=== PATIENT | male | born 1940 | race Caucasian/White ===

== ENCOUNTER 2019-12-26 07:40 | Day surgery (SDC) | payer OTHER ==
[~2019-12-26] VITALS: Ht 170.2 cm; Wt 70.9 kg
[~2019-12-26 07:40] MED LIST: HYDCHL12.5 PO; LOSA25 PO
[2019-12-26] MEDS ORDERED: MELO7.5 (08:17)
[2019-12-26] MEDS ORDERED: ASPI81CH (08:17)
[2019-12-26] MEDS ORDERED: MEMA5TAB (08:17)
[2019-12-26] MEDS ORDERED: ZYRTEC10 M2 (08:18)
== END 2019-12-26 09:29 | disposition home or self-care (01) ==
LOC: ORSCSDS 07:40
PROVIDERS: Ophthalmology
PROC: 08RJ3JZ Replacement of Right Lens with Synthetic Substitute, Percutaneous Approach (ICD-10-PCS; principal; 2019-12-26 09:00)
DX: H25.11 Age-related nuclear cataract, right eye (principal); I10 Essential (primary) hypertension; Z87.891 Personal history of nicotine dependence; Z79.899 Other long term (current) drug therapy
CPT/HCPCS: J2001; J2250; J3010; J3301; J7040; V2632

== ENCOUNTER 2022-05-30 18:46 | Inpatient (IN) | payer OTHER ==
[~2022-05-30] VITALS: Ht 170.2 cm; Wt 62.6 kg
[~2022-05-30 18:46] MED LIST changes: +ASPI81CH PO; +MEMA10 PO; +Mobic15 MG PO; +ZYRTEC10 M2 PO
[2022-05-30 19:20] LABS: BASOPHILS ABSOLUTE AUTO 0.02 K/mm3 (0.00-0.23); BASOPHILS PERCENT AUTO 0 % (0-2); EOSINOPHILS PERCENT AUTO 0 % (0-6); Hematocrit 42.3 % (37.0-53.0); Hemoglobin 14.2 g/dL (13.5-17.5); IMMATURE GRAN ABSOLUTE AUTO 0.03 K/mm3 (0.00-0.10); IMMATURE GRAN PERCENT AUTO 0 % (0-1); LYMPHOCYTES ABSOLUTE AUTO 0.37 K/mm3 (0.84-5.20); LYMPHOCYTES PERCENT AUTO 4 % (21-46); MONOCYTES ABSOLUTE AUTO 0.94 K/mm3 (0.16-1.47); MONOCYTES PERCENT AUTO 11 % (4-13); Mean Corpuscular HGB 31.1 pg (26.0-34.0); Mean Corpuscular HGB Conc 33.6 g/dL (31.5-36.5); Mean Corpuscular Volume 93 fL (80-100); Mean Platelet Volume 9.8 fL (9.1-12.4); NEUTROPHILS ABSOLUTE AUTO 7.39 K/mm3 (1.96-9.15); NEUTROPHILS PERCENT AUTO 85 % (41-73); Platelet Count 141 K/mm3 (150-400); RDW Coefficient Variation 12.1 % (11.7-14.2); RDW Standard Deviation 41.5 fL (35.1-46.3); Red Blood Cell Count 4.57 M/mm3 (4.30-5.90); White Blood Cell Count 8.75 K/mm3 (4.00-11.30)
[2022-05-30 19:39] LABS: Albumin, Blood 3.8 g/dL (3.4-5.0); Albumin/Globulin Ratio 1.4 (0.8-1.8); Bilirubin, Total 0.3 mg/dL (0.1-1.0); Bun/Creatinine Ratio 18.5 (12.0-20.0); Calcium, Blood 8.6 mg/dL (8.5-10.1); Creatinine, Blood 0.87 mg/dL (0.60-1.20); Globulin, Blood 2.8 g/dL (2.2-4.0); Potassium, Blood 3.2 mmol/L (3.5-5.5); Total Protein, Blood 6.6 g/dL (6.4-8.2)
[2022-05-30 20:39] LABS: Influenza A, PCR NEGATIVE (NEGATIVE); Influenza B, PCR NEGATIVE (NEGATIVE); Resp Syncytial Virus, PCR NEGATIVE (NEGATIVE)
[2022-05-30 20:53] LABS: SARS-Cov-2 (COVID-19) PCR, MMC POSITIVE (NEGATIVE)
[2022-05-30 21:30] LABS: Source, Urine Clean Catch
[2022-05-30 21:41] LABS: Bilirubin, Urine Neg (Neg); Blood, Urine 3+ (Neg); Color, Urine Yellow (P-Yellow); Glucose Qualitative, Urine Neg (Neg); Ketones, Urine 1+ (Neg); Leukocyte Esterase, Urine 1+ (Neg); Nitrite, Urine Neg (Neg); Protein, Urine 1+ (Neg); Urobilinogen, Urine NORM (Normal)
[2022-05-30 21:42] LABS: Appearance, Urine Clear (Clear)
[2022-05-30 21:43] LABS: Bacteria Rare /hpf; Mucus Light (0-Heavy); Red Blood Cells, Urine 0-2 /hpf (0-2); Squamous Epithelial Cells Not Seen /hpf (Few); White Blood Cells, Urine 0-2 /hpf (0-5)
[2022-05-31 02:12] VITALS: BP 121/68
[2022-05-31] MEDS ORDERED: TAMS.4ER PO (03:23)
[2022-05-31] MEDS ORDERED: MENTH TOP (03:27)
[2022-05-31] MEDS ORDERED: CAMPHOR TOP (03:27)
[2022-05-31] MEDS ORDERED: METHYL TOP (03:27)
--- NOTE | 2022-05-31 04:34 | NUR ---
SHIFT SUMMARY 82 YR M ADMITTED ON 05/31/22 FOR HYPOXIA DUE TO COVID AND ENCEPHALOPATHY. FULL CODE. PT ARRIVED TO THIS UNIT WITH HIS AT HIS SIDE. HE IS ONLY ORIENTED TO HIMSELF. HE IS CONFUSED BUT MOSTLY SEEMS AT A LOSS FOR WORDS OR THOUGHTS. HE TRIES TO ANSWER QUESTIONS BUT JUST CANT REMEMBER THE ANSWERS. STATES HE IS A&O X 4 AT BASELINE. PT IS COVID POSITIVE. HAS BEEN AT BEDSIDE SINCE HIS ARRIVAL. HE IS CONTINENT AT BASELINE BUT HIS CLOTHS WERE URINE SOAKED WHEN HE GOT HERE. STATES SHE DOESN'T KNOW IF HE HAD AN EPISODE OF INCONTINENCE OR IF SHE SPILLED THE URINAL ON HIM WHILE TRYING TO HELP HIM USE IT IN THE ED. HE IS VERY PLEASANT AND FOLLOWS INSTRUCTIONS. NO C/O PAIN OR DISCOMFORT. LUNGS SOUNDS ARE GOOD AND HE ONLY C/O A DRY COUGH PERIODICALLY.
[2022-05-31 05:44] LABS: BASOPHILS ABSOLUTE AUTO 0.03 K/mm3 (0.00-0.23); BASOPHILS PERCENT AUTO 0 % (0-2); EOSINOPHILS PERCENT AUTO 0 % (0-6); Hematocrit 41.2 % (37.0-53.0); Hemoglobin 13.8 g/dL (13.5-17.5); IMMATURE GRAN ABSOLUTE AUTO 0.03 K/mm3 (0.00-0.10); IMMATURE GRAN PERCENT AUTO 0 % (0-1); LYMPHOCYTES ABSOLUTE AUTO 0.94 K/mm3 (0.84-5.20); LYMPHOCYTES PERCENT AUTO 11 % (21-46); MONOCYTES ABSOLUTE AUTO 1.05 K/mm3 (0.16-1.47); MONOCYTES PERCENT AUTO 12 % (4-13); Mean Corpuscular HGB 31.2 pg (26.0-34.0); Mean Corpuscular HGB Conc 33.5 g/dL (31.5-36.5); Mean Corpuscular Volume 93 fL (80-100); Mean Platelet Volume 9.3 fL (9.1-12.4); NEUTROPHILS ABSOLUTE AUTO 6.54 K/mm3 (1.96-9.15); NEUTROPHILS PERCENT AUTO 76 % (41-73); Platelet Count 125 K/mm3 (150-400); RDW Coefficient Variation 12.2 % (11.7-14.2); RDW Standard Deviation 42.4 fL (35.1-46.3); Red Blood Cell Count 4.42 M/mm3 (4.30-5.90); White Blood Cell Count 8.59 K/mm3 (4.00-11.30)
[2022-05-31 06:07] LABS: Albumin, Blood 3.2 g/dL (3.4-5.0); Albumin/Globulin Ratio 1.1 (0.8-1.8); Bilirubin, Total 0.5 mg/dL (0.1-1.0); Bun/Creatinine Ratio 20.3 (12.0-20.0); Calcium, Blood 8.3 mg/dL (8.5-10.1); Creatinine, Blood 0.84 mg/dL (0.60-1.20); Globulin, Blood 2.8 g/dL (2.2-4.0); Potassium, Blood 3.8 mmol/L (3.5-5.5)
[2022-05-31 07:58] VITALS: BP 115/66
--- NOTE | 2022-05-31 12:35 | NUR ---
CALLED DR BEAUCHAMP AND RECIEVED ORDER TO DC THE BIOX. SPOKE ABOUT HOME MEDS NOT YET ORDERED, AWARE AND WILL REVIEW.
[2022-05-31 16:58] VITALS: BP 111/80
--- NOTE | 2022-05-31 17:23 | NUR ---
PATIENT IS ALERT AND ORIENTED TO SELF AND . PATIENT IS ABLE TO FOLLOW SOME COMMANDS. HE CAN TURN IN BED WITH ASSISTANCE WHEN CHANGING HIS BREIF. ST MADE THE PATIENT STRICT NPO THIS AFTERNOON. OK TYLENOL GIVEN FOR A TEMPERATURE OF 102 ORALLY. TEMPERATURE RECHECKED AND DOWN TO 100.2. ALSO TESTED POSITIVE FOR COVID. WENT HOME FOR A BIT BUT IS BACK AT THE BEDSIDE NOW. IVF RUNNING PER EMAR. INCONTINENT OF URINE. PT SAW THE PATIENT TODAY. PATIENT IS STILL BEDREST. NO ATTEMPTS TO GET OOB SINCE IN ROOM 344. ONE REMOTE CAMERA MONITORING. ON RA. WILL CONTINUE TO MONITOR
[2022-05-31 19:28] VITALS: BP 120/65
[2022-06-01 02:16] VITALS: BP 127/67
--- NOTE | 2022-06-01 05:17 | NUR ---
SUMMARY: UPON ARRIVAL FOR SHIFT PATIENT O2 WAS 87% ON ROOM AIR. PLACED PATIENT ON 2L NC AND CONT O2 MONITOR. PATIENT STARTED TO HAVE A LOT OF SECRETIONS THAT HE WAS NOT ABLE TO CLEAR AND AN ELEVATED TEMP. GAVE RECTAL TYLENOL AND PLACED A COOLING PAD ON PATIENT BACK. FEVER SUBSIDED. THROUGHOUT THE NIGHT O2 WAS DROPPING INCREASED O2 UP TO 7L ON HIGH FLOW CANNULA. NOTIFIED PROVIDER AND RECIEVED ORDERS FOR BD PROTOCOL AND IV STEROIDS. PATIENT IMPROVED AFTER MEDS GIVEN. TITRATING O2 BACK DOWN THIS MORNING TO 4L NC . AOX1. BEDREST AT THIS TIME. STRICT NPO.
[2022-06-01 08:37] VITALS: BP 157/55
--- NOTE | 2022-06-01 16:02 | NUR ---
-ANANT MENTIONED THAT SHE DOESN'T WANT HIM TO SUFFER. STARTED TALKING ABOUT SWALLOW AND COMFORT AND CODE STATUS. SHE DID VOICE SHE DOESN'T WANT HIM CODED. CONTINUE POC.
[2022-06-01 20:12] VITALS: BP 120/67
--- NOTE | 2022-06-02 04:00 | NUR ---
SHIFT SUMMARY; PT WITH NO ACUTE CHANGES OVERNIGHT. THE PT IS RESTING IN BED AND HAS BEEN FOR THE ENTIRETY OF THE NIGHT. THE PT IS AXO X1-2 AND VERY CONFUSED. THE PT HAS BEEN INCONTINENT THIS EVENING. THE PT IS ON 4L HIGH FLOW NC PRESENTLY WITH O2 SATS RANGING FROM 92-95% WHEN HE LEAVES HIS O2 IN PLACE. HOWEVER, HE FREQUENTLY TAKES OFF HIS O2 AND DESATS TO THE MID 80'S. THE PT DENIES ANY SOB, CHEST PAIN/PRESSURE OR N/V. CURRENTLY THE PT IS RESTING IN BED WITH THE BED IN THE LOWEST POSITION AND THE CALL LIGHT AT BEDSIDE.
[2022-06-02 04:37] VITALS: BP 107/67
[2022-06-02 05:45] LABS: Albumin, Blood 2.5 g/dL (3.4-5.0); Anion Gap 1 mmol/L (6-16); Blood Urea Nitrogen 20 mg/dL (8-24); Bun/Creatinine Ratio 23.5 (12.0-20.0); CO2, Blood 31 mmol/L (21-32); Calcium, Blood 8.6 mg/dL (8.5-10.1); Chloride, Blood 108 mmol/L (98-108); Creatinine, Blood 0.85 mg/dL (0.60-1.20); Glomerular Filtration Rate 88 (60-); Glucose, Blood 109 mg/dL (70-99); Phosphorus, Blood 1.9 mg/dL (2.5-4.9); Potassium, Blood 3.5 mmol/L (3.5-5.5); Sodium, Blood 140 mmol/L (136-145)
[2022-06-02 08:00] VITALS: BP 113/66
--- NOTE | 2022-06-02 14:17 | NUR ---
Pt has history of dementia, and recently tested positive for covid at home. He was not improving, so his brought him to the ED, where he was admitted, along with encephalopothy in the setting of covid. Pt's has been visiting daily, and after he failed his swallowing eval, their decision became for pt to d/c w hospice at the [place]. They have some family coming to town to assist pt's .
[2022-06-02 15:32] VITALS: BP 120/76
[2022-06-02 20:31] VITALS: BP 125/75
[2022-06-03 03:11] VITALS: BP 117/68
--- NOTE | 2022-06-03 04:02 | NUR ---
SUMMARY: NO ACUTE EVENTS OVERNIGHT. PATIENT REFUSED TO WEAR O2 BUT IS STATING 90-94% ON RA. TURNED IN BED Q2HR. PATIENT INC OVERNIGHT. BREIF CHANGED FREQUENTLY. PATIENT STATED HE WANTS TO GET OUT OF BED TODAY. COMPLIANT WITH ALL CARE. PLEASANT WITH STAFF. VSS.
[2022-06-03 15:20] VITALS: BP 140/80
--- NOTE | 2022-06-04 05:40 | NUR ---
PT IS A&O TO SELF, BEDREST WITH RESTRAINTS TO THE UPPER EXT, RA WITH SATS IN THE LOW TO MID 90'S, VSS, NO COMPLAINTS OF PAIN OR DISCOMFORT OVERNIGHT CONTINUE POC
[2022-06-04 07:50] VITALS: BP 132/71
[2022-06-04 07:51] VITALS: BP 132/71
--- NOTE | 2022-06-04 13:24 | NUR ---
Palliative care visit: Met with pt's , Ginny, at his bedside this morning. Discussed goals of care and plan going forward. Reviewed the most recent swallow eval recs with pt's . Options for care after discharge discussed with Ginny. Presented home with home health or hospice vs. hospice with placement as an option for Don. Answered questions and explained the hospice philosophy. Ginny reports she is unable to care for Don at this time. She is also recovering from COVID and is very weak. Satinder is requiring assist with all ADLs at this time. He wanted to get OOB to urinate during this food writer's visit. Pt unable to sit at the EOB without assistance. Ginny reports a decreased appetite recently for Don. Ginny elects for discharge with hospice services to the [place]. If the [facility] isn't available she is open to hospice care at a SNF with [facility]. Ginny would like to continue with treatments in the hospital. She doesn't want to transition to comfort care prior to discharge. Explained that if Don stabilizes or improves that hospice services could be revoked. Ginny verbalizes understanding. YASIR completed. Spoke with nursing, CM and hospitalist and updated them on plan of care going forward. PC to continue to follow for symptom management and advanced care planning prn.
--- NOTE | 2022-06-04 20:13 | NUR ---
SHIFT SUMMARY: ONCE PATIENTS SOFT WRIST RETRAINTS WERE REMOVED PATIENTS MOOD/ATTITUDE IMPROVED AND WAS SMILING MORE. ONCE HIS CAME TO VISIT WITH HIM HE WAS LESS IRRITABLE WITH STAFF AND MORE COMPLIANT. PATIENT WAS INCONTINENT OF STOOL AND URINE AND WAS CHANGED MULTIPLE TIMES THROUGHOUT THE SHIFT. HE TOLERATED A SMALL AMOUNT OF PO INTAKE. STAYED AT BEDSIDE MAJORITY OF THE SHIFT WITH THE PATIENT. HE IS A MODERATE ASSIST WITH CHANGING LINENS/BRIEFS WHILE IN BED. TAKES HIS MEDICATIONS CRUSHED AND IN APPLESAUCE. PATIENT IS LAYING IN BED WITH CALL LIGHT IN REACH WITH AT BEDSIDE.
[2022-06-05 08:22] VITALS: BP 133/76
[2022-06-05 16:37] VITALS: BP 140/74
--- NOTE | 2022-06-05 16:50 | NUR ---
SHIFT SUMMARY NO ACUTE CHANGES DURING SHIFT. PT ALERT TO SELF, PT HARD TO UNDERSTAND. PUREED DIET, CRUSH MEDS IN APPLESAUCE. PT REMAINS ON RA. AT BEDSIDE. RESTRAINTS REMOVED THIS MORNING, PT COOPERATIVE WITH CARE. PT PENDING PLACEMENT. WILL CONTINUE TO MONITOR. CALL LIGHT WITHIN REACH.
[2022-06-05 19:46] VITALS: BP 140/93
--- NOTE | 2022-06-06 05:42 | NUR ---
SHIFT SUMMARY PT IS A&O TO SELF, BEDREST NO RESTRAINTS THIS SHIFT BUT MILDLY AGITATED THROUGHOUT THE NIGHT, AT THE BEDISDE THIS SHIFT RA, NO ACUTE OVERNIGHT EVENTS CONTINUE POC
[2022-06-06 07:56] VITALS: BP 142/75
--- NOTE | 2022-06-06 15:33 | NUR ---
SHIFT SUMMARY: NO NEW ACUTE CHANGES IN PATIENT CONDITION THIS SHIFT. PATIENT A&O TO SELF ONLY. MUMBLED SPEECH DIFFICULT TO UNDERSTAND. VISIBLE TREMORS TO BUE. RECEIVED BEDBATH AND LINEN CHANGED THIS SHIFT. PATIENT IS INCONTINENCE OF URINE AND STOOL. ABBY CARE, ATTENDS CHANGED AND REPOSITIONED T/O SHIFT. RECIEVED SCHEDULED MEDS PER EMAR. IV TO R FOREARM SALINE LOCKED. PATIENT STILL ON ENHANCE ISOLATION FOR COVID POSITIVE. BED ALARM ON FOR SAFETY. CALL LIGHT IN REACH.
[2022-06-06 15:39] VITALS: BP 145/75
[2022-06-06 19:18] VITALS: BP 140/113
[2022-06-06 19:23] VITALS: BP 157/105
--- NOTE | 2022-06-06 19:23 | NUR ---
PT ON CONTINUOUS BIOX, SATS 89% ON RA. PT REFUSED OXYGEN. REPOSITIONED PT IN BED, AND SATS NOW 90-92% ON RA. CALL LIGHT WITHIN REACH. BED IN LOW POSITION. BED ALARM ON FOR PT SAFETY. PT DENIES FEELING SOB.
--- NOTE | 2022-06-07 04:04 | NUR ---
SHIFT SUMMARY - NO ACUTE CHANGES THROUGHOUT THIS SHIFT. PT'S SATS HAVE REMAINED STABLE ON RA, EXCEPT PREVIOUSLY NOTED AT THE BEGINNING OF THE SHIFT - SEE PREVIOUS NOTE. PT HAS SLEPT THROUGHOUT MOST OF THE NIGHT, APPX 7-8 HOURS. REMAINED IN THE ROOM THROUGHOUT THE NIGHT. RESPIRATIONS EVEN AND UNLABORED THROUGHOUT THE NIGHT. CALL LIGHT WITHIN REACH. BED IN LOW POSITION. BED ALARM ON FOR PT SAFETY. WILL CONTINUE TO MONITOR UNTIL AM SHIFT CHANGE.
--- NOTE | 2022-06-07 05:09 | NUR ---
SHIFT SUMMARY EDIT - PT ON MASIMO BIOX OUTSIDE OF ROOM, NOT A CONTINUOUS BIOX IN ROOM.
[2022-06-07 05:55] VITALS: BP 147/83
[2022-06-07 07:38] VITALS: BP 116/69
[2022-06-07 15:26] VITALS: BP 133/76
--- NOTE | 2022-06-07 17:55 | NUR ---
PATIENT A/O TO SELF AND ONLY WORKED WITH PT/OT TODAY AND WAS ABLE TO AMBULATED WITH FWW, GB AND 1 ASSIST WITHIN THE ROOM. UP IN CHAIR FOR LUNCH. 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 VSS, ON RA WHILE AWAKE AND 2LO2 WHILE ASLEEP. HR RUNS 50-60'S. PATIENT DENIES ANY PAIN OR DISCOMFORT. AT BEDSIDE AND SHE ALSO HAS COVID. [facility]10. NO NEW CONCERNS THIS SHIFT.
[2022-06-07 20:30] VITALS: BP 132/75
[2022-06-08 02:44] VITALS: BP 112/86
--- NOTE | 2022-06-08 04:28 | NUR ---
SHIFT SUMMARY A/O TO SELF AND FAMILY. AT BEDSIDE. PT RESTLESS T/O NIGHT ATTEMPTING TO GET OOB, EASILY REDIRECTED. DENIES PAIN OR SOB. SPO2 >92% ON RA. VSS, NO ACUTE CHANGES AT THIS TIME. BED IN LOWEST POSITION WITH CALL LIGHT IN REACH. WILL CONTINUE TO MONITOR AND REPORT TO ONCOMING RN.
[2022-06-08 07:38] VITALS: BP 134/73
[2022-06-08 16:09] VITALS: BP 132/83
--- NOTE | 2022-06-08 17:12 | NUR ---
PATIENT ORIENTED TO SELF AND FAMILY ONLY. SPEECH MUMBLED AND DIFFICULT TO UNDERSTAND. VSS, ON RA TODAY WITH SATS IN THE LOW 90'S. PATIENT ANXIOUS AND TRYING TO CRAWL OUT OF BED DESPITE HIS BEING AT BEDSIDE. ZYPREXA GIVEN X1 TO TREAT ANXIETY WITH SOME RELIEF. ASSISTING WITH MEALS PATIENT IS A FEEDER. AWAITING PLACEMENT AT [facility] ON TUESDAY.
[2022-06-08 21:13] VITALS: BP 139/85
--- NOTE | 2022-06-09 03:11 | NUR ---
SHIFT SUMMARY NOC PT A/O TO SELF AND WHO IS AT BEDSIDE. PT SPEECH IS MUMBLED AND NONSENSICLE. PT ON CONTINOUS BIOX WITH SPO2 >92% ON RA. PT WAS INC OF URINE X 1. PT HAD SLIGHT AGITATION BEFORE BED AND ZYPREXA WAS GIVEN WITH GOOD EFFECT. PT IS AWAITING PLACEMENT AT THE [facility] FOR HOSPICE CARE ON TUESDAY. PT IS CURRENTLY RESTING WITH BED ALARM ON, BED IN LOWEST POSITION, AND CALL LIGHT WITHIN REACH.
[2022-06-09 05:06] VITALS: BP 113/70
[2022-06-09 07:33] VITALS: BP 113/78
[2022-06-09 17:19] VITALS: BP 118/68
--- NOTE | 2022-06-09 17:30 | NUR ---
SHIFT SUMMARY PATIENT UP TO CHAIR FOR MEALS, AND RESTING IN BED. PLEASANT AND COOPERATIVE WITH CARE. PRESENT MOST OF DAY. BED ALARM ON, VIDEO MONITORING ON. PATIENT DENIES ANY PAIN DURING THIS SHIFT. WILL CONTINUE TO MONITOR.
[2022-06-09 19:25] VITALS: BP 114/80
[2022-06-10 05:51] VITALS: BP 107/74
[2022-06-10 07:26] VITALS: BP 133/75
--- NOTE | 2022-06-10 07:29 | NUR ---
patient had a quiet night for the most part. Minimal coughing which sounded loose in upper airways, but was non productive. no indications of discomfort, although spouse stated he routinely took tylenol at HS, so he was given this in addition to Melatonin. patient still attempting OOB, but alarm was enough to slow him until staff were in the room. No significant changes overnight
[2022-06-10] MEDS ORDERED: MELATONIN5 M1 PO (10:55)
[2022-06-10] MEDS ORDERED: Acetaminophen325 M1 PO (10:55)
[2022-06-10] MEDS ORDERED: OLAN5 PO (10:56)
--- NOTE | 2022-06-10 13:07 | NUR ---
DISCHARGE NOTE PT DISCHARGED TO HOME, PICKED UP BY [facility]. IV REMOVED, PERSONAL BELONGINGS RETURNED. DISCHARGE INFORMATION GIVEN TO THE TRANSPORTER TO GIVE TO HIS .
== END 2022-06-10 13:03 | disposition hospice, home (50) | DRG 177 ==
LOC: ER 18:46 → MEDS 05-31 00:04
PROVIDERS: Family Medicine; Internal Medicine; Student in an Organized Health Care Education/Training Program; ADMIT Internal Medicine
PROC: XW033E5 Introduction of Remdesivir Anti-infective into Peripheral Vein, Percutaneous Approach, New Technology Group 5 (ICD-10-PCS; principal; 2022-05-31)
PROC: 3E0333Z Introduction of Anti-inflammatory into Peripheral Vein, Percutaneous Approach (ICD-10-PCS; 2022-05-31)
PROC: 8E0ZXY6 Isolation (ICD-10-PCS; 2022-05-31)
DX: U07.1 COVID-19 (principal); G92.8 Other toxic encephalopathy; J69.0 Pneumonitis due to inhalation of food and vomit; J96.01 Acute respiratory failure with hypoxia; F03.918 Unspecified dementia, unspecified severity, with other behavioral disturbance; E87.6 Hypokalemia; I10 Essential (primary) hypertension; Z66 Do not resuscitate; Z51.5 Encounter for palliative care; M19.012 Primary osteoarthritis, left shoulder; M19.011 Primary osteoarthritis, right shoulder; F10.10 Alcohol abuse, uncomplicated; G47.00 Insomnia, unspecified; Z79.899 Other long term (current) drug therapy; Z79.82 Long term (current) use of aspirin; Z87.891 Personal history of nicotine dependence; Z98.42 Cataract extraction status, left eye; Z98.41 Cataract extraction status, right eye
CPT/HCPCS: 0241U; 36415; 70450; 71045; 74230; 80053; 80069; 81001; 85025; 92526; 92610; 92611; 94640; 94664; 94760; 94762; 96361; 96365; 96366; 96372; 96374; 96375; 97110; 97112; 97116; 97163; 97166; 97530; 97535; 99285-25; A9270; G0378; J0248; J1100; J1650; J1885; J2543; J7030; J7050; J7060; J7121

== ENCOUNTER 2023-10-30 07:19 | Observation (INO) | payer OTHER ==
[~2023-10-30] VITALS: Ht 172.7 cm; Wt 68.0 kg
[~2023-10-30 07:19] MED LIST changes: +Acetaminophen325 M1 PO; +CAMPHOR TOP; +MELATONIN5 M1 PO; +MENTH TOP; +METHYL TOP; +OLAN5 PO; +TAMS.4ER PO
[2023-10-30] MEDS ORDERED: NS 1,000 ML IV SCH (07:35)
[2023-10-30] MEDS ORDERED: MethylPREDNISolone Sod Succ 125 MG Vial IV ONE (07:35)
[2023-10-30] MEDS ORDERED: Ipratropium/Albuterol SulF 2.5-0.5MG/3 ML Amp INH ONE (07:35)
[2023-10-30] MEDS ORDERED: Acetaminophen 650 MG Supp PR ONE (07:40)
[2023-10-30] MEDS ORDERED: Piperacillin/Tazobactam Sod 4.5 GM in NS 100 ML IV ONE (07:40)
[2023-10-30 07:42] LABS: Base Excess Venous -5.1 mmol/L; Bicarbonate Venous 22.6 mmol/L (24.0-30.0); PCO2 Venous 22.6 mmHg (38-42); pH Blood Venous 7.51 (7.34-7.37)
[2023-10-30 08:26] LABS: BASOPHILS ABSOLUTE AUTO 0.03 K/mm3 (0.00-0.23); BASOPHILS PERCENT AUTO 0 % (0-2); EOSINOPHILS PERCENT AUTO 0 % (0-6); Hematocrit 53.5 % (37.0-53.0); Hemoglobin 17.3 g/dL (13.5-17.5); IMMATURE GRAN ABSOLUTE AUTO 0.12 K/mm3 (0.00-0.10); IMMATURE GRAN PERCENT AUTO 1 % (0-1); LYMPHOCYTES PERCENT AUTO 4 % (21-46); MONOCYTES ABSOLUTE AUTO 1.66 K/mm3 (0.16-1.47); MONOCYTES PERCENT AUTO 13 % (4-13); Mean Corpuscular HGB 30.5 pg (26.0-34.0); Mean Corpuscular HGB Conc 32.3 g/dL (31.5-36.5); Mean Corpuscular Volume 94 fL (80-100); Mean Platelet Volume 11.2 fL (9.1-12.4); NEUTROPHILS PERCENT AUTO 82 % (41-73); Platelet Count 223 K/mm3 (150-400); RDW Coefficient Variation 12.6 % (11.7-14.2); RDW Standard Deviation 43.8 fL (35.1-46.3); Red Blood Cell Count 5.68 M/mm3 (4.30-5.90); White Blood Cell Count 13.01 K/mm3 (4.00-11.30)
[2023-10-30 08:47] LABS: Calcium, Blood 9.5 mg/dL (8.5-10.1); Creatinine, Blood 1.96 mg/dL (0.60-1.20); Potassium, Blood 3.9 mmol/L (3.5-5.5)
[2023-10-30] MEDS ORDERED: DOCU100 PO (09:16)
[2023-10-30] MEDS ORDERED: ZYRTEC10 M2 PO (09:16)
[2023-10-30] MEDS ORDERED: SENN187 PO (09:16)
[2023-10-30] MEDS ORDERED: QUET25 PO (09:16)
[2023-10-30 09:22] LABS: Influenza A, PCR NEGATIVE (NEGATIVE); Influenza B, PCR NEGATIVE (NEGATIVE); Resp Syncytial Virus, PCR NEGATIVE (NEGATIVE)
[2023-10-30 11:22] LABS: SARS-Cov-2 (COVID-19) PCR, MMC POSITIVE (NEGATIVE)
[2023-10-30] MEDS ORDERED: Azithromycin 500 MG in NS 250 ML IV ONE (11:25)
[2023-10-30] MEDS ORDERED: CefTRIAXone Sodium 1,000 MG in NS 100 ML IV ONE (11:25)
[2023-10-30] MEDS ORDERED: Remdesivir (EUA) 200 MG in NS 250 ML IV ONE (11:50)
[2023-10-30] MEDS ORDERED: Dextrose 5% 1,000 ML IV SCH ×2 (11:50→13:00)
[2023-10-30] MEDS ORDERED: dexAMETHasone 4 MG TAB PO SCH (12:00)
[2023-10-30] MEDS ORDERED: Ondansetron HCl 2 MG / ML 2ML Vial IV PRN (13:00)
[2023-10-30] MEDS ORDERED: LORazepam 2 MG/ML 1ML Injection IV PRN (13:00)
[2023-10-30] MEDS ORDERED: Dexamethasone Sodium Phosphate 4 MG/ML 5ML VIAL IV SCH (13:00)
[2023-10-30] MEDS ORDERED: Morphine Sulfate 20 MG/1ML 1 ML Oral Syringe PO PRN (13:00)
[2023-10-30] MEDS ORDERED: Atropine Sulfate 1% Opth Soln 2ML BTL SL PRN (13:15)
[2023-10-30] MEDS ORDERED: Haloperidol Lactate Inj. 5 MG/ML Injection IV PRN (13:20)
[2023-10-30 13:56] VITALS: BP 100/69
[2023-10-30] MEDS ORDERED: Dexamethasone Sodium Phosphate 4 MG/ML 1ML Vial IV ONE (14:00)
[2023-10-30 14:25] LABS: Source, Urine Foley catheter
[2023-10-30 14:42] LABS: Bilirubin, Urine Neg (Neg); Blood, Urine 1+ (Neg); Glucose Qualitative, Urine Neg (Neg); Ketones, Urine Neg (Neg); Leukocyte Esterase, Urine Neg (Neg); Nitrite, Urine Neg (Neg); Protein, Urine 2+ (Neg); Urobilinogen, Urine 1+ (Normal)
[2023-10-30 14:57] LABS: Appearance, Urine Clear (Clear); Color, Urine Yellow (P-Yellow)
[2023-10-30 14:58] LABS: Bacteria Few /hpf; Red Blood Cells, Urine 0-2 /hpf (0-2); Renal Epithelial Rare /hpf (0-Rare); Squamous Epithelial Cells Not Seen /hpf (Few); Transitional Epithelial Cells Rare /hpf (0-Rare)
--- NOTE | 2023-10-30 15:47 | NUR ---
SHIFT SUMMARY; PATIENT ARRIVES TO MED FLOOR VIA GURNEY FROM ER AFTERNOON TODAY. HE IS UNRESPONSIVE EXCEPT TO PAINFULL [facility]. NAGY CATHETR PLACED FOR COMFORT CARE/END OF LIFE. D5 INFUSING ORDERED X 1 BAG PER ORDER AND DEXAMETHASONE IVP ADMIN ON ARRIVAL TO [facility]. PER PATIENT IS COMFORT CARE AND WILL BE GOING ON HOSPICE PROBABLY TOMORROW. NO FAMILY AT BEDSIDE. ATTEMPT TO CALL SPOUSE UNSUCCESSFUL NO OTHER NUMBERS AVAILABLE. WILL PASS ON TO NOC SHIFT IF FAMILY COMES IN TO FINISH ASSESSMENT AND HISTORY.
[2023-10-31 05:33] VITALS: BP 114/77
[2023-10-31] MEDS ORDERED: Remdesivir (EUA) 100 MG in NS 250 ML IV SCH (12:00)
--- NOTE | 2023-10-31 18:09 | NUR ---
SHIFT SUMMARY: COMFORT CARE PT. PT MEDICATED FOR PAIN THREE TIMES THIS SHIFT. REPOSITIONED SEVERAL TIMES. PT BECOMES VERY ANXIOUS/FEARFUL WITH ANY PT CARE. ATTEMPTED TO REASSURE PT THAT STAFF IS HERE TO CARE FOR PT. CATH CARE COMPLETED. PLAN FOR PT TO D/C WITH HOSPICE TOMORROW AT 1000. CALL LIGHT IN REACH. BED IN LOWEST POSITION.
--- NOTE | 2023-11-01 06:21 | NUR ---
SHIFT SUMMARY PATIENT ALERT AND ORIENTED TIMES 1 PATIENT REPOSITIONED THROUGHOUT SHIFT PATIENT IS COMFORT CARE 11 LITERS O2 CONTINUOUS WITH MASK ORAL CARE DONE THROUGHOUT SHIFT NAGY CATHETER CHECKED ROUTINELY PATIENT DECLINED PAIN MEDICATION PATIENT TO DISCHARGE TODAY WITH HOME CARE.
--- NOTE | 2023-11-01 10:40 | NUR ---
DISCHARGE: PT D/C @1000 VIA AMBULANCE TRANSPORT TO HOME WITH HOSPICE. PT LEFT ON 9L HIGH FLOW OXYGEN MASK. HOSPICE NURSE TO MEET PT AND FAMILY AT HOME. IV REMOVED OUT OF LFA W/O COMPLICATIONS. CATH CARE COMPLETED PRIOR TO D/C.
== END 2023-11-01 10:02 | disposition hospice, home (50) ==
LOC: ER 07:19 → MEDS 07:20 → ER 13:35 → MEDS 13:49
PROVIDERS: Emergency Medicine; ADMIT Internal Medicine
DX: J96.01 Acute respiratory failure with hypoxia (principal); U07.1 COVID-19; J18.9 Pneumonia, unspecified organism; E87.0 Hyperosmolality and hypernatremia; E86.0 Dehydration; F03.90 Unspecified dementia, unspecified severity, without behavioral disturbance, psychotic disturbance, mood disturbance, and anxiety; M19.90 Unspecified osteoarthritis, unspecified site; Z79.899 Other long term (current) drug therapy; Z66 Do not resuscitate; Z87.891 Personal history of nicotine dependence
CPT/HCPCS: 0241U; 36415; 70450; 71045; 71260; 80048; 81001; 82803; 83605; 83880; 84484; 85025; 87040; 87086; 93005; 93010; 94640; 94660; 94664; 94760; 96361; 96365-59; 96366; 96367; 96375; 96375-59; 96376; 99285-25; A9270; G0378; J0248; J0456; J0696; J1100; J1630; J2543; J2919; J7030; J7050; J7070; Q9967